=== PATIENT | female | born 1960 | race Caucasian/White ===

== ENCOUNTER 2017-02-06 08:24 | Emergency (ER) | payer OTHER ==
[~2017-02-06] VITALS: Ht 157.5 cm; Wt 66.4 kg
[2017-02-06 08:26] VITALS: BP 158/96
[2017-02-06] MEDS ORDERED: FLUORESCEIN OPHTHALMIC 1 MG STRIP ONE (08:36)
[2017-02-06] MEDS ORDERED: PROPARACAINE OPHTH 0.5%, 15ML ONE (08:36)
[2017-02-06] MEDS ORDERED: ESTROGEN (08:52)
== END 2017-02-06 09:33 | disposition home or self-care (01) ==
LOC: ED 08:46
DX: H10.022 Other mucopurulent conjunctivitis, left eye (principal)
CPT/HCPCS: 99283